=== PATIENT | female | born 1975 | race Two or more races ===

== ENCOUNTER 2020-10-02 07:17 | Emergency (ER) | payer BC, OTHER ==
[~2020-10-02] VITALS: Ht 154.9 cm; Wt 57.3 kg
--- NOTE | 2020-10-02 07:33 | NUR ---
CONTACT WITH PT, 44 YR OLD FEMALE HERE WITH C/O "IT STARTED LAST PAIN AT INCISION SITES BEGAN LAST MON, DIFFICULTY URINATING" 03/18/2007 AT [facility] HAD HYSTERECTOMY R
--- NOTE | 2020-10-02 07:41 | NUR ---
BRIAN TEE AT BEDSIDE TO EVAL PT
[2020-10-02 07:55] LABS: MICROSCOPIC INDICATED
--- NOTE | 2020-10-02 08:31 | NUR ---
PT AMB TO BR, GAIT STEADY. PT CONT TO URINATE SMALL AMOUNTS. PT AND UPDATED ON POC. WAITING FOR TEST RESULTS. NO NEEDS EXPRESSED AT THIS TIME.
[2020-10-02 08:45] LABS: ALBUMIN 3.4 g/dL (3.4-5.0); ANION GAP 7 mmol/L (5-15); CALCIUM 8.7 mg/dL (8.5-10.1); CHLORIDE 110 mmol/L (98-107)
[2020-10-02 08:48] LABS: BASOPHILS % (AUTO) 1 % (0-1); EOSINOPHILS % (AUTO) 1 % (1-7); LYMPHOCYTES % (AUTO) 14 % (22-44); MEAN CORPUSCULAR HEMOGLOBIN 29.4 pg (27.0-34.8); MEAN CORPUSCULAR HGB CONC 33.3 g/dL (32.4-35.8); MEAN PLATELET VOLUME 8.2 fL (7.4-10.4); MONOCYTES % (AUTO) 6 % (2-9); NEUTROPHILS % (AUTO) 78 % (42-75); PLATELET COUNT 327 x10^3/uL (130-400); RED BLOOD COUNT 4.25 x10^6/uL (3.82-5.3); RED CELL DISTRIBUTION WIDTH 13.9 % (9.6-15.2)
[2020-10-02 08:49] LABS: MD NO
[2020-10-02] MEDS ORDERED: LIDOCAINE-MPF 1%, 5ML ONE (09:09)
[2020-10-02] MEDS ORDERED: CEFTRIAXONE 1,000 MG ONE (09:09)
--- NOTE | 2020-10-02 09:22 | NUR ---
PT MEDICATED ORDERED. WAITING FOR FURTHER DISPOSITION
[2020-10-02] MEDS ORDERED: CEFTRIAXONE 1,000 MG IM ONE (09:30)
[2020-10-02 09:54] VITALS: BP 99/63
== END 2020-10-02 09:56 | disposition home or self-care (01) ==
LOC: ED 09:37
DX: N30.01 Acute cystitis with hematuria (principal); Z90.710 Acquired absence of both cervix and uterus
CPT/HCPCS: 36415; 80048; 81001; 82040; 85025; 87086; 96372; 99285; J0696

== ENCOUNTER → 2020-11-30 | Outpatient (CLI) | payer BC ==
[~2020-11-30] MED LIST: TRAM50TA2 PO
[2020-11-30 12:05] LABS: MICROSCOPIC AUTO
== END | disposition home or self-care (01) ==
LOC: STAR 09:59
PROVIDERS: ATTEND Obstetrics & Gynecology Female Pelvic Medicine and Reconstructive Surgery
DX: Z01.812 Encounter for preprocedural laboratory examination (principal); N81.6 Rectocele; N81.10 Cystocele, unspecified; R10.2 Pelvic and perineal pain; N39.3 Stress incontinence (female) (male); Z20.822 Contact with and (suspected) exposure to COVID-19
CPT/HCPCS: 81001; 87635

== ENCOUNTER 2020-12-06 10:32 | Day surgery (SDC) | payer BC ==
[~2020-12-06] VITALS: Ht 162.6 cm; Wt 58.9 kg
[~2020-12-06 10:32] MED LIST changes: +BUPIVACAINE/PF 0.25% ONE; +EPINEPHRINE 1 MG/ML, 1ML ONE; +NEOMY/POLYMYXIN B GU IRR. 1 ML ONE
[2020-12-06 10:54] VITALS: BP 102/65
[2020-12-06] MEDS ORDERED: CHLORHEXIDINE 15 ML UDC MM ONE (11:00)
[2020-12-06] MEDS ORDERED: LACTATED RINGERS 1,000 ML IV SCH (11:00)
[2020-12-06] MEDS ORDERED: CHLORHEXIDINE 15 ML UDC ONE (11:01)
[2020-12-06] MEDS ORDERED: FENTANYL PF 100 MCG/2ML ONE (13:25)
[2020-12-06] MEDS ORDERED: MIDAZOLAM 1 MG/ML, 2ML ONE (13:26)
[2020-12-06] MEDS ORDERED: HYDROmorphone 1 MG/ML, 1ML INJ IVPush PRN (13:30)
[2020-12-06] MEDS ORDERED: HYDROcodone/APAP 7.5-325MG/15ML UDC PO PRN (13:30)
[2020-12-06] MEDS ORDERED: OXYcodone 5 MG/5 ML ORAL.SOL UDC PO PRN (13:30)
[2020-12-06] MEDS ORDERED: KETOROLAC 30 MG/1 ML IVPush PRN (13:30)
[2020-12-06] MEDS ORDERED: PROMETHAZINE 25 MG/ML, 1ML IVPush PRN (13:30)
[2020-12-06] MEDS ORDERED: MEPERIDINE/PF 25MG/0.5ML IVPush PRN (13:30)
[2020-12-06] MEDS ORDERED: ONDANSETRON 2MG/ML, 2ML IVPush PRN (13:30)
[2020-12-06] MEDS ORDERED: FENTANYL PF 100 MCG/2ML IV PRN (13:30)
[2020-12-06] MEDS ORDERED: CEFAZOLIN 1,000 MG ONE (14:17)
[2020-12-06] MEDS ORDERED: DEXAMETHASONE 4 MG/ML, 5ML ONE (14:17)
[2020-12-06] MEDS ORDERED: ONDANSETRON 2MG/ML, 2ML ONE (14:17)
[2020-12-06] MEDS ORDERED: LIDOCAINE-MPF 2% ,5ML ONE (14:17)
[2020-12-06] MEDS ORDERED: KETOROLAC 30 MG/1 ML ONE (15:16)
== END 2020-12-06 17:30 | disposition home or self-care (01) ==
LOC: OUT 10:32
PROVIDERS: ATTEND Obstetrics & Gynecology Female Pelvic Medicine and Reconstructive Surgery
DX: N39.46 Mixed incontinence (principal); N81.89 Other female genital prolapse; N81.10 Cystocele, unspecified; N81.6 Rectocele; D64.9 Anemia, unspecified; Z79.899 Other long term (current) drug therapy; Z98.890 Other specified postprocedural states
CPT/HCPCS: 57265; 57282; 57288; C1771; J0171; J0690; J1100; J1885; J2250; J2405; J3010; J7120